=== PATIENT | female | born 1960 | race Caucasian/White ===

== ENCOUNTER 2020-05-13 08:02 | Day surgery (SDC) | payer OTHER, SELFPAY ==
[~2020-05-13] VITALS: Ht 160 cm; Wt 70.3 kg
[2020-05-13] MEDS ORDERED: MIDAZOLAM 2 MG/2 ML VIAL ONE (09:27)
[2020-05-13] MEDS ORDERED: LIDOCAINE 2% 100 MG/5 ML UJET TP ONE ×2 (09:28→10:15)
[2020-05-13] MEDS ORDERED: fentaNYL citrate 0.05 MG/ML VIAL ONE (09:28)
[2020-05-13] MEDS ORDERED: fentaNYL citrate 0.05 MG/ML VIAL IVP ONE (10:15)
[2020-05-13] MEDS ORDERED: MIDAZOLAM 2 MG/2 ML VIAL IVP ONE (10:15)
== END 2020-05-13 11:10 | disposition home or self-care (01) ==
LOC: MFCC 08:02 → MDS 08:02
PROVIDERS: ATTEND Internal Medicine Gastroenterology
DX: K62.5 Hemorrhage of anus and rectum (principal); Z11.59 Encounter for screening for other viral diseases
CPT/HCPCS: 45378; J2250; J3010; U0003

== ENCOUNTER 2020-12-16 08:12 | Day surgery (SDC) | payer OTHER, SELFPAY ==
[~2020-12-16] VITALS: Ht 157.5 cm; Wt 71.7 kg
[2020-12-16] MEDS ORDERED: diphenhydrAMINE 50 MG/ML VIAL ONE (10:01)
[2020-12-16] MEDS ORDERED: MIDAZOLAM 2 MG/2 ML VIAL ONE ×2 (10:01→10:02)
[2020-12-16] MEDS ORDERED: fentaNYL citrate 0.05 MG/ML VIAL ONE (10:01)
[2020-12-16] MEDS ORDERED: LIDOCAINE 2% 100 MG/5 ML UJET TP ONE ×2 (10:02→13:30)
[2020-12-16] MEDS ORDERED: MIDAZOLAM 2 MG/2 ML VIAL IVP ONE (13:30)
[2020-12-16] MEDS ORDERED: fentaNYL citrate 0.05 MG/ML VIAL IVP ONE (13:30)
== END 2020-12-16 11:28 | disposition home or self-care (01) ==
LOC: MDS 08:12 → MFCC 08:45 → MDS 11:28
PROVIDERS: ATTEND Internal Medicine Gastroenterology
DX: Z12.11 Encounter for screening for malignant neoplasm of colon (principal)
CPT/HCPCS: 45378; 87426; J2250; J3010; J1200

== ENCOUNTER 2022-02-02 10:09 | Day surgery (SDC) | payer OTHER ==
[~2022-02-02] VITALS: Ht 157.5 cm; Wt 72.6 kg
[2022-02-02] MEDS ORDERED: fentaNYL citrate 0.05 MG/ML VIAL ONE (11:54)
[2022-02-02] MEDS ORDERED: diphenhydrAMINE 50 MG/ML VIAL ONE (11:54)
[2022-02-02] MEDS ORDERED: MIDAZOLAM 5 MG/5 ML VIAL ONE (11:55)
[2022-02-02] MEDS ORDERED: LIDOCAINE 2% 100 MG/5 ML UJET TP ONE (11:55)
[2022-02-02] MEDS ORDERED: MIDAZOLAM 2 MG/2 ML VIAL IVP ONE (14:05)
== END 2022-02-02 13:40 | disposition home or self-care (01) ==
LOC: MDS 10:09 → MMU 10:10 → MDS 13:40
PROVIDERS: ATTEND Internal Medicine Gastroenterology
DX: Z12.11 Encounter for screening for malignant neoplasm of colon (principal); K62.5 Hemorrhage of anus and rectum; K59.00 Constipation, unspecified; Z90.710 Acquired absence of both cervix and uterus; Z80.0 Family history of malignant neoplasm of digestive organs; Z20.822 Contact with and (suspected) exposure to COVID-19
CPT/HCPCS: 45378; 87426; J2250; J3010; J1200